=== PATIENT | male | born 1945 | race Hispanic/Latino ===

== ENCOUNTER 2019-02-06 12:44 | Outpatient (CLI) | payer MEDICARE, OTHER ==
--- NOTE | 2019-02-06 14:26 | XRay Report ---
CHEST 2 VIEWS INDICATION: SHORTNESS OF BREATH. COMPARISON: None FINDINGS: Support devices: None. Heart: Borderline heart size. Lungs/pleura: Mild central pulmonary venous congestion and small bilateral pleural effusions are iden tified. Minor compressive atelectasis is identified at the lung bases, otherwise, the lungs are clear . No pneumothorax. Additional findings: None. IMPRESSION: Mild CHF. Signer Name: Harsha Nichols Jr, MD Signed: 02/06/2019 2:21 PM Workstation Name: [id number]
== END 2019-02-06 12:45 | disposition home or self-care (01) ==
LOC: SPVIMAG 12:44
PROVIDERS: ATTEND Internal Medicine
DX: J90 Pleural effusion, not elsewhere classified (principal); I50.9 Heart failure, unspecified
CPT/HCPCS: 71046